=== PATIENT | female | born 1950 | race American Indian/Alaskan Native ===

== ENCOUNTER 2018-09-19 12:22 | Outpatient (CLI) | payer MEDICARE ==
[2018-09-19 14:19] LABS: Albumin 4.2 g/dL (3.9-5); Calcium 9.4 mg/dL (8.4-10.2)
[2018-09-21 22:30] LABS: Abnormal Protein Band 1 0.8 g/dL; Albumin 3.8 g/dL (3.8-4.8); Gamma Globulin 1.2 g/dL (0.8-1.7)
[2018-09-22 19:17] LABS: Vitamin D, 25-OH, D2 <4 ng/mL
== END 2018-09-19 12:23 | disposition home or self-care (01) ==
LOC: LAB 12:22
PROVIDERS: ATTEND Specialist
DX: G65.1 Sequelae of other inflammatory polyneuropathy (principal); G62.9 Polyneuropathy, unspecified; R79.89 Other specified abnormal findings of blood chemistry
CPT/HCPCS: 36415; 80053; 82306; 82607; 83036; 83921; 84165; 84443; 85652; 86334; 86592